=== PATIENT | female | born 1960 | race Caucasian/White ===

== ENCOUNTER 2016-08-26 08:53 | Emergency (ER) | payer BC ==
--- NOTE | 2016-08-26 09:07 | Emergency Department Record ---
History of Present Illness - General Chief complaint: Extremity Problem Stated complaint: SWOLLOWN HOT RIGHT MIDDLE FINGER Time Seen by Provider: 08/26/16 09:06 Source: Patient Mode of Arrival: Ambulatory Limitations: No limitations - History of Present Illness Initial comments: The patient is here due to having pain in her R 3rd finger for 2 days. Five days ago she had her R 3rd finger poked for an iron test due to donating blood that day. Now the finger pad is tender, slightly swollen and painful. MD Complaint: Extremity pain Onset/Timin -: Days(s) Location: Right, Other History of Same: No Radiation: None Severity scale (1-10): 5 Quality: Other Consistency: Constant Improves with: Nothing Worsens with: Nothing Associated Symptoms: Denies other symptoms - Related Data Previous Rx's Medication Instructions Recorded Cephalexin [Keflex] 500 mg PO QID #28 cap 08/26/16 Allergies Allergy/AdvReac Type Severity Reaction Status Date / Time No Known Drug Allergies Allergy Verified 08/26/16 09:07 Travel Screening - Travel/Exposure Within Last 30 Days Have you traveled within the last 30 days?: No - Travel/Exposure Within Last Year Have you traveled outside the [place] in the last year?: No - Additonal Travel Details Have you been exposed to anyone with a communicable illness?: No - Travel Symptoms Symptom Screening: None Review of Systems Constitutional: Denies: Chills, Fever Eyes: Denies: Eye discharge ENT: Denies: Congestion Respiratory: Denies: Cough, Dyspnea Physical Exam - General General Appearance: Alert, Oriented x3, Cooperative, No acute distress - Head Head exam: Atraumatic, Normocephalic - Eye Eye exam: Normal appearance, PERRL - Extremities Extremities exam: Full ROM, Normal capillary refill, Tenderness. negative: Normal inspection (The R 3rd finger pad is very slightly erythematous, and mildly tender. There is no flexor tenosynovitis present.) Course Vital Signs 08/26/16 08:56 Temperature 97.7 F Pulse Rate 70 Respiratory 20 Rate Blood Pressure 142/97 Pulse Ox 100 - Reevaluation(s) Reevaluation #1: I did explain to the patient that she appears to possibly have an early infection to the finger pad. She will take the Keflex and use warm soaks and see her PCP next week if not better. 08/26/16 09:18 Disposition Disposition: Discharge Clinical Impression: Finger infection Disposition: Home, Self-Care Condition: (1) Good Instructions: [place] (ED) Additional Instructions: Please take the Keflex as directed and soak the finger every 2-3 hours during the day. Please see your PCP for recheck in 2-3 days and return to the ER for increased swelling, pain, or redness. Prescriptions: Cephalexin [Keflex] 500 mg PO QID #28 cap Forms: Patient Portal Access Time of Disposition: 09:14
== END 2016-08-26 09:27 | disposition home or self-care (01) ==
LOC: ER 08:53
DX: L08.9 Local infection of the skin and subcutaneous tissue, unspecified (principal)
CPT/HCPCS: 99282